=== PATIENT | female | born 1970 | race Caucasian/White ===

== ENCOUNTER → 2020-07-16 07:49 | Outpatient (CLI) | payer BC, SELFPAY ==
--- NOTE | ~2020-07-16 | MR_ITS ---
EXAMINATION: MR shoulder LT wo con DATE: 07/16/2020 08:29 INDICATION: Left shoulder pain TECHNIQUE: Magnetic resonance imaging (MRI) of the left shoulder was performed without intravenous co ntrast. Sequences included axial PD-weighted FS FSE, coronal oblique PD-weighted FS FSE, coronal obli que T2-weighted FS FSE, sagittal PD-weighted FS FSE, and sagittal T1-weighted SE. COMPARISON: None. FINDINGS: Coracoacromial arch: The acromion undersurface is curved in morphology (type II). Tiny anterior subacromial spur at the ac romial insertion of the normal coracoacromial ligament. Negligible acromioclavicular osteoarthritis. Rotator cuff: Mild tendinopathy and shallow bursal sided fraying without discrete tear defect of the supraspinatus and conjoined portion of the supraspinatus and infraspinatus tendons. The subscapularis and teres min or tendons are normal. Normal rotator cuff muscle bulk and signal. Biceps tendon, glenoid labrum and glenohumeral cartilage: Long head of the biceps tendon is normal. Normal glenoid labrum with normal anterosuperior sublabral foramen and smooth medially curved sublabral sulcus at the 12:00-12:30 position of the superior gleno id labrum. Glenohumeral cartilage is normal. Fluid: Physiologic amount of fluid in the glenohumeral joint and biceps tendon sheath. No loose osteochondra l bodies. Small amount of fluid in the subacromial/subdeltoid bursa consistent with mild bursitis. Bones: Normal marrow signal with no edema, fracture or abnormal marrow replacing process. IMPRESSION: 1. Slight progression in mild tendinopathy and shallow bursal sided fraying without discrete tear def ect along the supraspinatus and conjoined portion of the supraspinatus and infraspinatus tendons. 2. Mild subacromial/subdeltoid bursitis. Reviewed, dictated and finalized at location A. IMPRESSION: 1. Slight progression in mild tendinopathy and shallow bursal sided fraying wit hout discrete tear defect along the supraspinatus and conjoined portion of the supraspinatus and infraspinatus tendons. 2. Mild subacromial/subdeltoid bursitis.
== END ==
PROVIDERS: PCP Physician Assistant Medical; Visit Provider Physician Assistant Medical
DX: M25.512 Pain in left shoulder (principal); M75.82 Other shoulder lesions, left shoulder; M75.52 Bursitis of left shoulder
CPT/HCPCS: 73221

== ENCOUNTER 2025-08-17 08:45 | Outpatient (RCR) | payer BC, SELFPAY ==
--- NOTE | 2025-05-31 15:54 | PTOPEVAL1 ---
Assessment and note entered by Nissa Lara, PT Evaluation Information Assessment Status Evaluation Diagnosis left hip pain ICD-10 Condition Codes (PT) Pain in left hip M25.552,Weakness R53.1 Other ICD-10 Condition Codes ( Stiffness of left hip joint PT) Onset ~ 1 year Subjective Information Reports left hip pain progressively worsened over the last year. Pt also has Parkinson's and didn't know if was related as she has her tremors more on left and throws her foot out sometimes with walking First waking, crossing over leg for shoes, getting up from sitting, and stairs all increase discomfort. Was provided exercises by her daughter who noticed weakness on that side. Reported Pain Level Pain Score 4: Self Report Assessment PT Clinical Summary Pt presents with c/o left hip pain, and x-rays showing mild osteoarthritis to bony hip joints. Today she shows decreased ROM in multiple planes bony but L>R as well as decreased strength in gluteal muscles. She also shows leg length discrepancy for which she has been provided information in order to address this. Pt will greatly benefit from physical therpay to address pain, weakness, and ROM to improve overall functional mobility and quality of life. Plan of Care Interventions Electrical Stimulation,Hot Pack/Cold Pack,Manual Therapy,Neuro Re-education,Patient/Caregiver Education,Therapeutic Activities,Therapeutic Exercise,Self-Care/Home Management,Ultrasound PT Services Indicated Yes Treatment Frequency and 1-2x weekly x 16 visits Duration These treatments will address the objective and functional deficits as defined above. The patient will be advanced safely and appropriately in order for the patient to progress towards his/her prior level of function. Additional exercises will be introduced and as well as a comprehensive home exercise program upon discharge, if needed, ?to ensure carryover of functional gains achieved in the clinic. This treatment plan has been reviewed and agreement upon by the patient.
--- NOTE | 2025-05-31 15:54 | OPREHPOC ---
Outpatient Therapy Plan of Care This is a Multidisciplinary Plan of Care that may contain components documented by all disciplines (PT, OT, and ST.) PT Problem 1 PT Problem #1 Knowledge Deficit PT Goal 1 Goal / Goal Update Pt will be independent in HEP Pt will verbalize understanding of diagnosis and prognosis Target Visit 8 PT Problem 2 PT Problem #2 Pain PT Goal 1 Goal / Goal Update Pt will report greatest pain level at 3/10 or less to improve ADLs and activities Target Visit 8 PT Goal 2 Goal / Goal Update Pt will report resolution of pain to return to PLOF Target Visit 16 PT Problem 3 PT Problem #3 Impaired Strength PT Goal 1 Goal / Goal Update Pt will demo 3+/5 or greater strength in BLE to improve hip stability and kinematics with activities Target Visit 8 PT Goal 2 Goal / Goal Update Pt will demo 4/5 or greater strength in BLE to improve knee stability and kinematics with activities Target Visit 16 PT Problem 4 PT Problem #4 Impaired Range of Motion PT Goal 1 Goal / Goal Update Pt will demonstrate increased rotation internally and externally by 10 degrees LLE to show improved mobility of hip joint. Target Visit 16
--- NOTE | 2025-07-06 13:30 | PTOPPROG ---
Assessment and note entered by Nissa Lara, PT Evaluation Information Assessment Status Progress Diagnosis left hip pain ICD-10 Condition Codes (PT) Pain in left hip M25.552,Pain in left knee M25.562 ,Weakness R53.1 Other ICD-10 Condition Codes ( Stiffness of left hip joint PT) Onset ~ 1 year Subjective Information Crossing leg over for shoes has has been doing pretty good, stairs is not totally pain free but is a lot better. First waking up in the morning or other prolonged position still stiff but better. Left out knee and lower leg were also problematic and though improved is still present. States that is having some popping in the knee cap and pain carlos go down outside of leg Assessment PT Clinical Summary Pt has attended therapy consistently for her left hip pain that has been progressing well. She reports greater ease with stairs especially. Partway through her POC, she began complaining of left knee pain which appears related to the L illiotibial band, patellar tracking, and glute medius weakness as well. Today we initiated kinesiotaping to left patella, continued soft tissue work, and continued hip stretching and strengthening. Pt will benefit from continued therapy to continue strengthening, focus on alignment, and reduce discomfort in hip and knee. Plan of Care Interventions Electrical Stimulation,Hot Pack/Cold Pack,Manual Therapy,Neuro Re-education,Patient/Caregiver Education,Therapeutic Activities,Therapeutic Exercise,Self-Care/Home Management,Ultrasound PT Services Indicated Yes Treatment Frequency and 2x weekly x 10 visits Duration These treatments will address the objective and functional deficits as defined above. The patient will be advanced safely and appropriately in order for the patient to progress towards his/her prior level of function. Additional exercises will be introduced and as well as a comprehensive home exercise program upon discharge, if needed, ?to ensure carryover of functional gains achieved in the clinic. This treatment plan has been reviewed and agreement upon by the patient.
--- NOTE | 2025-08-17 09:23 | PTOPDC ---
Assessment and note entered by Nissa Lara, PT Evaluation Information Assessment Status Discharge Diagnosis left hip pain ICD-10 Condition Codes (PT) Pain in left hip M25.552,Pain in left knee M25.562 ,Weakness R53.1 Other ICD-10 Condition Codes ( Stiffness of left hip joint PT) Onset ~ 1 year Subjective Information Pt reports is feeling good, is all doing much better. Still has a little stiffness in the morning or sitting long periods. Steps and putting on shoes is perfect. Pt reports was squatting and picking up nuts yesterday and was able to do this without issue. Not having to take any pain medication to keep pain levels low Reported Pain Level Pain Score 0,0: Self Report Assessment PT Clinical Summary Pt has attended therapy consistently for left hip, left knee and lower leg pain. She has done very well, now is able to cross her legs for dressing and go up and down steps without any pain. She reports pain levels at 0/10 most times with stiffness in the morning rated at a 2/10 being the highest discomfort she has been feeling recently. She has met all her therapy goals and appears to understand her HEP and maintenance program. Thus patient is being discharged for completion of therapy POC. Plan of Care PT Services Indicated No
== END 2025-08-18 08:00 | disposition home or self-care (01) ==
LOC: ANHHIPT 08:45
PROVIDERS: PCP Physician Assistant Medical; Visit Provider Physician Assistant Medical
DX: M25.552 Pain in left hip (principal); R53.1 Weakness
CPT/HCPCS: 97014; 97110; 97112; 97140; 97161; 97530; 97750; G0283